=== PATIENT | male | born 1975 | race Caucasian/White ===

== ENCOUNTER → 2017-03-27 | Outpatient (REF) ==
--- NOTE | 2017-03-27 09:49 | REP ---
LUMBAR SPINE, THREE VIEWS: HISTORY: Degenerative disc disease. COMPARISON: 09/06/2015 There is no acute fracture or subluxation. There is an old compression fracture of the L1 vertebral body with minimal height loss. The intervertebral discs are decreased in height consistent with disc degeneration. Osteophytes are present on T12 through L2. There is loss of the normal lordotic curve. IMPRESSION: Degenerative change as described above. Signed by Ovidio aMndel MD 03/27/2017 10:05 A
== END ==
LOC: M SMT 09:08
PROVIDERS: ATTEND Internal Medicine
DX: M51.35 Other intervertebral disc degeneration, thoracolumbar region (principal); M51.36 Other intervertebral disc degeneration, lumbar region

== ENCOUNTER → 2017-08-16 | Outpatient (CLI) | payer OTHER ==
[2017-08-16 11:51] LABS: BLOOD UREA NITROGEN 12 MG/DL (7-18); CREATININE FOR GFR 1.32 MG/DL (0.70-1.30); GLOMERULAR FILTRATION RATE > 60.0 (>60)
--- NOTE | 2017-08-16 22:50 | ECGEPIP ---
Stationary ECG Study [facility] Test Date: 2017-08-16 Pat Name: ROBBY HAMILTON Department: Room: - Gender: M [employer]: OREN : 1975 Requested By: Thong Lubin Order Number: [id number] Reading MD: Macario Saab Measurements Intervals [place] Rate: 76 P: 50 NH: 148 QRS: 75 QRSD: 109 T: 49 QT: 348 QTc: 391 Interpretive Statements SINUS RHYTHM INDETERMINATE AXIS ATYPICAL ECG No prior ECG available for comparison at the time of interpretation. Electronically Signed On 08-16-2017 22:50:11 EDT by Macario Saab
[2017-08-29 00:06] LABS: ACETAMINOPHEN Negative ug/mL (10-30); AMITRIPTYLINE None Detected (Not Estab.); BUTALBITAL None Detected ug/mL (1-10); DESIPRAMINE None Detected (Not Estab.); DIAZEPAM None Detected ug/mL (0.1-0.9); DOXEPIN None Detected (Not Estab.); ETHANOL Negative % (0.000-0.010); NORCHLORDIAZEPOXIDE None Detected ug/mL (0.1-0.6); NORDIAZEPAM None Detected ug/mL (0.1-1.4); NORDOXEPIN None Detected (Not Estab.); NORTRIPTYLINE None Detected ng/mL (50-150); PENTOBARBITAL None Detected ug/mL (1-5); PHENOBARBITAL None Detected ug/mL (15-40); PHENYTOIN None Detected ug/mL (10.0-20.0)
== END ==
LOC: M LAB 10:40
PROVIDERS: ATTEND Physical Medicine & Rehabilitation
DX: M47.26 Other spondylosis with radiculopathy, lumbar region (principal)
CPT/HCPCS: 36415; 82565; 84520; 84600; 93005; G0480

== ENCOUNTER → 2017-11-19 | Outpatient (REF) | payer OTHER ==
[2017-11-19 13:26] LABS: ANION GAP 3 MEQ/L (8-16); BLOOD UREA NITROGEN 6 MG/DL (7-18); CALCIUM LEVEL 9.1 MG/DL (8.5-10.1); CARBON DIOXIDE LEVEL 33 MEQ/L (21-32); CHLORIDE LEVEL 103 MEQ/L (98-107); CREATININE FOR GFR 0.95 MG/DL (0.70-1.30); GLOMERULAR FILTRATION RATE > 60.0 (>60); GLUCOSE, FASTING 105 MG/DL (70-100); POTASSIUM SERUM 3.9 MEQ/L (3.5-5.1); SODIUM LEVEL 139 MEQ/L (136-145)
[2017-11-19 13:50] LABS: AMPHETAMINES URINE REFLEX NEGATIVE (NEGATIVE); BARBITURATES URINE REFLEX NEGATIVE (NEGATIVE); BENZODIAZEPINES URINE REFLEX NEGATIVE (NEGATIVE); COCAINE METABOLITE URINE REFLE NEGATIVE (NEGATIVE); METHADONE URINE REFLEX NEGATIVE (NEGATIVE); OPIATES URINE REFLEX NEGATIVE (NEGATIVE); PHENCYCLIDINE URINE REFLEX NEGATIVE (NEGATIVE)
[2017-11-19 13:51] LABS: CANNABINOIDS URINE REFLEX POSITIVE (NEGATIVE)
[2017-11-21 14:13] LABS: Cannabinoid Positive (.); GC Carboxy THC 18 ng/mL (Cutoff=10)
== END ==
LOC: M LABDRAW1 11:05
DX: M47.26 Other spondylosis with radiculopathy, lumbar region (principal)

== ENCOUNTER → 2018-03-19 | Outpatient (REF) | payer OTHER ==
[2018-03-19 14:09] LABS: ALBUMIN 4.5 GM/DL (3.2-5.2); ALBUMIN/GLOBULIN RATIO 1.18 (1.00-1.93); ALKALINE PHOSPHATASE 73 U/L (45-117); ALT/SGPT 17 U/L (12-78); AST/SGOT 18 U/L (7-37); BILIRUBIN,DIRECT 0.1 MG/DL (0.0-0.2); BILIRUBIN,TOTAL 0.6 MG/DL (0.2-1.0); TOTAL PROTEIN 8.3 GM/DL (6.4-8.2)
== END ==
LOC: M LABDRAW1 11:02
DX: M47.27 Other spondylosis with radiculopathy, lumbosacral region (principal)
CPT/HCPCS: 80076

== ENCOUNTER → 2018-12-06 | Outpatient (REF) | payer OTHER ==
[2018-12-06 12:03] LABS: BASO % 0.4 % (0.0-1.0); EOS # 0.1 10^3/uL (0.0-0.50); EOS % 1.1 % (0.0-3.0); HEMATOCRIT 43.7 % (42.0-52.0); HEMOGLOBIN 14.8 g/dl (13.5-17.5); LYMPH # 1.5 10^3/uL (1.5-4.5); LYMPH % 20.8 % (24.0-44.0); MEAN CORPUSCULAR HEMOGLOBIN 31.4 pg (27.0-33.0); MEAN CORPUSCULAR HGB CONC 33.9 g/dl (32.0-36.5); MEAN CORPUSCULAR VOLUME 92.8 fl (80.0-96.0); MONO # 0.8 10^3/uL (0.0-0.8); MONO % 10.2 % (0.0-5.0); NEUTROPHILS % 67.4 % (36.0-66.0); PLATELET COUNT, AUTOMATED 246 10^3/uL (150-450); RED BLOOD COUNT 4.71 10^6/uL (4.30-6.10); WHITE BLOOD COUNT 7.4 10^3/uL (4.0-10.0)
[2018-12-06 12:41] LABS: ALT/SGPT 29 U/L (12-78); BILIRUBIN,TOTAL 0.3 MG/DL (0.2-1.0); BLOOD UREA NITROGEN 14 MG/DL (7-18); CALCIUM LEVEL 8.7 MG/DL (8.5-10.1); CARBON DIOXIDE LEVEL 29 MEQ/L (21-32); CHLORIDE LEVEL 107 MEQ/L (98-107); CREATININE FOR GFR 0.92 MG/DL (0.70-1.30); GLOMERULAR FILTRATION RATE > 60.0 (>60); GLUCOSE, FASTING 97 MG/DL (70-100); POTASSIUM SERUM 4.7 MEQ/L (3.5-5.1); SODIUM LEVEL 140 MEQ/L (136-145)
[2018-12-06 12:42] LABS: ALBUMIN 4.1 GM/DL (3.2-5.2); CHOLESTEROL LEVEL 203 MG/DL (<200); CHOLESTEROL RISK RATIO 3.383 (<5); HDL CHOLESTEROL 60 MG/DL (>40); LDL CHOLESTEROL 127 MG/DL (<100); NON-HDL-C 143 MG/DL; TOTAL PROTEIN 7.2 GM/DL (6.4-8.2); TRIGLYCERIDES LEVEL 82 MG/DL (<150)
== END ==
LOC: M SFHCLERA 09:21
PROVIDERS: ATTEND Nurse Practitioner Family
DX: Z76.89 Persons encountering health services in other specified circumstances (principal)

== ENCOUNTER → 2019-08-15 | Outpatient (CLI) | payer OTHER ==
[2019-08-15 09:58] LABS: PLATELET COUNT, AUTOMATED 212 10^3/uL (150-450)
[2019-08-15 10:09] LABS: PROTHROMBIN TIME 12.9 SECONDS (11.8-14.0)
[2019-08-15 10:10] LABS: PARTIAL THROMBOPLASTIN TIME 27.4 SECONDS (25.0-38.4)
== END ==
LOC: M LAB 09:14
PROVIDERS: ATTEND Physical Medicine & Rehabilitation
DX: Z01.812 Encounter for preprocedural laboratory examination (principal); M47.27 Other spondylosis with radiculopathy, lumbosacral region

== ENCOUNTER → 2020-04-06 | Outpatient (CLI) | payer OTHER ==
[2020-04-06 10:40] LABS: ALBUMIN 4.2 GM/DL (3.2-5.2); BLOOD UREA NITROGEN 15 MG/DL (7-18); CREATININE FOR GFR 0.91 MG/DL (0.70-1.30); GLOMERULAR FILTRATION RATE > 60.0 (>60); TOTAL PROTEIN 7.7 GM/DL (6.4-8.2)
== END ==
LOC: M LAB 09:20
PROVIDERS: ATTEND Physical Medicine & Rehabilitation
DX: M51.27 Other intervertebral disc displacement, lumbosacral region (principal)